=== PATIENT | female | born 1960 | race Caucasian/White ===

== ENCOUNTER → 2016-08-26 | Outpatient (CLI) | payer BC ==
[~2016-08-26] MED LIST: ADVIN25/60 INH; ALBU1AER9 INH; AMLH/550 PO; BECL0.072 INH; CHOL2000 PO; COEN10CA5 PO; CYAN1DRO PO; DICL1GEL12 TOP; FLUT0.15; GLUCTAB7 PO; LORA5TAB3 PO; MAGN500T4 PO; MELO15TA4 PO; METO25TA3 PO; MULTCAP7 PO; OMEG10007 PO; POTA20TA16 PO; POTATAB PO; SPIR25TA PO; VITA400C15 PO
--- NOTE | 2016-08-26 12:54 | DIAGNOSTIC IMAGING REPORT ---
LEFT KNEE 4 OR MORE CLINICAL HISTORY: LEFT KNEE PAIN pain COMPARISON: None. DISCUSSION: Minimal narrowing of the medial joint compartments of the right as well as left knees. Smile small reactive osteophytic changes throughout all major joint compartments. No significant joint effusion. No evidence for fracture or dislocation There is no evidence for soft tissue swelling. IMPRESSION: 1. Mild degenerative change primarily the medial joint compartments of both knees. 2. Mild reactive peripheral osteophytic changes throughout all major joint compartments of the knees bilaterally Electronically signed by: Ruben Foster M.D. 08/26/2016 12:52 PM Dictated Date/Time: 08/26/2016 12:51 PM
== END | disposition home or self-care (01) ==
LOC: C.RDSM 12:41
PROVIDERS: ATTEND Physical Medicine & Rehabilitation Sports Medicine
DX: M25.562 Pain in left knee (principal)

== ENCOUNTER → 2016-11-16 | Outpatient (CLI) | payer BC ==
[~2016-11-16] VITALS: Ht 162.6 cm; Wt 119.1 kg
[2016-11-16 15:58] VITALS: BP 129/85; PULSE 86; Ht 162.6 cm; Wt 119.1 kg
== END | disposition home or self-care (01) ==
LOC: C.NEUR 15:43
PROVIDERS: ATTEND Internal Medicine Pulmonary Disease
DX: G47.33 Obstructive sleep apnea (adult) (pediatric) (principal); E66.9 Obesity, unspecified; F51.12 Insufficient sleep syndrome; D75.1 Secondary polycythemia

== ENCOUNTER → 2016-12-08 | Outpatient (CLI) | payer BC ==
--- NOTE | 2016-12-09 05:44 | PAP/PSG TECHNICIAN REPORT ---
[facility] Jewelry Bearing Maker Polysomnogram Report Study name: None Report date: 12/09/2016 Study date: 12/08/2016 Referring Physician: DR. WILVER CARPIO Name: MERYL MARLOW Interpreting Physician: Hunter Holly M.D. Date of : 1960 Jewelry Bearing Maker: Misty Curz [facility]. Sex: Female Age: 56 Study Type: PSG PAP Weight: 257.28 lbs Height: 56 years, Height 5' 4" BMI: 44.16 Medications: ADVAIR 250-50-MCG/DOSE, ALDACTONE 25 MG, AMILORIDE-HYDROCHLOROTHIAZIDE 5-50 MG, VIT D 2000 UNIT, COQ10 10 MG, CYANOCOBALAMIN 6000 MCG, FLONASE, GLUCOSAMINE CHONDROITIN, KLOR-CON 20 MEQ, LORATADINE 10 MG, MAGNESIUM 500 MG, MELOXICAM 15 MG, METOPROLOL 25 MG, MULTI VIT, OMEGA 3 FATTY ACIDS 300 MG, FISH OIL, POTASSIUM CITRATE 5 MEQ, PROAIR HFA, QVAR 40 MCG, VIT E 400 UNIT, VOLTAREN 1% GEL Patient History 56 yr-old female here for a CPAP update study. She was found to be positive for MORRIS via a home sleep study. She has since then been set up with CPAP at home and is back to assess her pressure settings. Tonight, she is wearing a Mirage FX Soft edge nasal mask size small from [employer]. The test was started on room air and 4 CMH2O. ETCO2 testing was not utilized during this study. Room 3 Parameters Monitored NPSG: E1-M2, E2-M1, Fp1-M2, Fp2-M1, F3-M2, F4-M2, F4-M1, C3-M2, C4-M2, C4-M1, O1-M2, O2-M2, O2-M1, T3-M2, T4-M1, P3-M2, P4-M1, CHIN1, CHIN2, HR, EKG, Legs, PFLOW, SNOR, FLOW, CFLOW, Tidal Volume, THOR, ABDO, SpO2, PLTH, CPRESS, ETCO2 Wave, ETCO2, pH Sleep Architecture Sleep Stages Time at Lights Off 10:58:25 PM STAGES Time (min.) TST (%) Time at Lights On 5:01:25 AM Wake 117.0 -- Total Recording Time (TRT) 363.00 min. N1 21.5 9 Total Sleep Period (TSP) 312.0 min. N2 190.0 77 Total Sleep Time (TST) 246.0min. N3 0.0 0 Awake Time 117.0 min. REM 34.5 14 Wake after Sleep Onset 106.0 min. Sleep Efficiency (SE) 68 % Sleep Onset Latency (ARMEN) 11.0 min. Number of Stage 1 Shifts None Awakenings 16 Stage Changes 56 Number of REM periods 2 REM 34.5 14 REM Latency 102.5 min. NREM 211.5 86 Body Position Analysis Supine Right Left Side Prone Vertical Total Sleep Time (min.) 0.0 0.0 171.5 171.50 164.4 0.1 Total Sleep Time (%) 0% 0% 70% 70 30% N/A% Total Sleep Time REM (min.) 0.0 0.0 18.0 None 16.5 0.0 Total Sleep Time NREM (min.) 0.0 0.0 153.5 None 58.0 0.0 Intermittent Wake (min.) 0.0 0.0 26.9 None 89.9 0.1 Total Sleep Period (%) 0% None None None None None Arousals Myoclonus (PLM) * Events Count Index Events Count Index Spontaneous 21 5 Events Awake (PLMW) 126 64.6 Respiratory 1 0.2 Events Asleep w/ Arousal (PLMA) 9 2.2 PLM 9 2 Events Asleep w/o Arousal (PLMS) 38 9.3 Snoring 4 1 Total Asleep 47 11.5 Total 35 9 Total 173 29 Respiratory Analysis * CA OA MA CH H RERA Total Count 0 0 0 0 8 1 8 Index 0.0 0.0 0.0 0 2.0 0 2.2 Mean Duration 0.0 0.0 0.0 0.00 16.5 16.6 16.6 Longest Duration 0.0 0.0 0.0 0.00 0.0 16.6 20.8 Respiratory Event Summary Total Supine ~Supine Right Left Prone REM NREM Apneas Count 0 N/A 0 N/A 0 0 0 0 Index 0.0 N/A 0 N/A 0.0 0 0 0 Hypopneas (4% Desat) Count 8 N/A 8 N/A 8 0 5 3 Index 2.0 N/A 2 N/A 2.8 0.0 8.7 0.9 Apneas & All Hypopneas Count 8 N/A 8 N/A 8 0 5 3 Index 2.0 N/A 2 N/A 3 0 8.7 0.9 Respiratory Events (Balloon Design Printer+All Hyp+RERA) Count 8 N/A 9 N/A 9 0 5 3 Index 2.2 N/A 2 N/A 3.1 0.0 8.7 1.1 Respiratory Related Arousal Count 1 N/A 1 N/A 1 0 0 1 Index 0.2 N/A 0 N/A 0 0 0 0 Snoring Analysis Supine Right Left Prone REM NREM Total Snore duration 24.5 min Snores count N/A N/A 932 514 16 1,430 1,446 Snore mean duration 1.0 Sec Snores index N/A N/A 326 414 27.8 405.7 352.7 TST with snoring (%) 9.9% Desaturation Event Summary: Minimum %SpO2 Event Count Mean/Min/Max Duration(sec.) Desaturation Index % Time In Bed > 90 22 33.5 / 6.3 / 56.0 4.0 97.6 86 - 90 1 40.0 / 40.0 / 40.0 7.4 2.4 81 - 85 0 N/A 0.0 0.0 76 - 80 0 N/A 0.0 0.0 71 - 75 0 N/A 0.0 0.0 66 - 70 0 N/A 0.0 0.0 61 - 65 0 N/A 0.0 0.0 56 - 60 0 N/A 0.0 0.0 51 - 55 0 N/A 0.0 0.0 < 50 0 N/A 0.0 0.0 Total REM NREM Awake <50% 0.0 min. 0.0 min. 0.0 min. 0.0 min. 51 - 60% 0.0 min. 0.0 min. 0.0 min. 0.0 min. 61 - 70% 0.0 min. 0.0 min. 0.0 min. 0.0 min. 71 - 80% 0.0 min. 0.0 min. 0.0 min. 0.0 min. 81 - 90% 8.1 min. 5.3 min. 0.2 min. 2.6 min. 91 - 100% 332.6 min. 29.1 min. 211.3 min. 92.2 min. Average 93 92 93 93 Minimum SpO2 87 87 88 89 Desaturation Event Index 3.6 13.9 1.7 4.6 # Desat. Events below 89% 2 2 N/A N/A Time(%) with Saturation below 89% 0.2 0.2 0.0 0.0 Time(min.) with Saturation below 89% 0.7 0.7 0.1 0.0 Time (mins) REM (mins) NREM (mins) % of TST SpO2 Below 90% 6 6 NN/A 1.1 SpO2 Below 88% 1 0 0 0 Heart Rate Analysis Min (bpm) Max (bpm) Average (bpm) Awake 71 98 80 NREM 67 92 77 REM 73 127 81 Overall 67 127 77 Supplemental O2 Values Minimum O2 level: None Value Start Time End Time Jewelry Bearing Maker Comments Ms. Marlow slept in the left and prone positions. No cardiac arrhythmias or PLMs noted. No bruxism noted. CPAP was initiated at +4 CMH2O and up-titrated to a level of +6 CMH2O, Cflex 2 which nearly eliminated all respiratory events and snoring. A Mirage FX Soft edge nasal mask size small from [employer] was used during titration She did not wake up to use the restroom during the night. She woke up early and stated that she could no longer sleep and requested to end the study. Ms. Marlwo stated that she slept poorly. The final report will be interpreted and signed by a sleep physician. The completed physician report will then be placed in the patient medical record. Therapy Event: Therapy (cm H20) 4 5 6 Total Time at Pressure (min.) 104.4 41.7 216.9 TST at Pressure (min.) 89.9 40.7 115.4 # Periods 1 1 1 Sleep Onset (min.) 11.0 0.0 0.0 REM Onset (min.) N/A 9.1 92.9 Sleep Efficiency % 86 97 53 Wakefulness (%) 13.9 2.4 46.8 Wakefulness (min.) 14.5 1.0 101.5 NREM 1 (%) 11.5 4.8 3.5 NREM 1 (min.) 12.0 2.0 7.5 NREM 2 (%) 74.6 49.7 42.1 NREM 2 (min.) 77.9 20.7 91.4 NREM 3 (%) 0.0 0.0 0.0 NREM 3 (min.) 0.0 0.0 0.0 REM (%) 0.0 43.1 7.6 REM (min.) 0.0 18.0 16.5 # Arousals 15 6 14 Arousal Index 10.0 8.8 7.3 # Snore 780 44 622 Snore Index 520.6 64.8 323.5 AHI 2.0 7.4 0.0 AHI Supine N/A N/A N/A AHI Non-Supine 2.0 7.4 0.0 NREM AHI 2.0 0.0 0.0 REM AHI N/A 16.7 0.0 RDI 2.7 7.4 0.0 # Obstructive 0 0 0 # Central Ap 0 0 0 # Mixed 0 0 0 # Hypopneas 3 5 0 RERAS 1 0 0 Total Respiratory Events 4 5 0 Time Below SpO2 89.00% (min.) 0.0 0.6 0.2 Mean NREM SpO2 (%) 94 94 93 Mean REM SpO2 (%) N/A 92 92 Mean Sleep SpO2 (%) 94 93 93 Min NREM SpO2 (%) 92 93 88 Min REM SpO2 (%) N/A 87 88 Position Supine (min.) 0.0 0.0 0.0 Position Non-supine (min.) 89.9 40.7 115.4 LM Index Sleep 6.0 10.3 16.1 LM Index NREM 6.0 5.3 17.6 LM Index REM N/A 16.7 7.3 Mean Heart Rate (bpm) 77 79 77 Min Heart Rate (bpm) 67 71 68
--- NOTE | 2016-12-17 12:27 | Sleep Study ---
Sleep Study Report Date of Service: December 08, 2016 Sleep Study Report Clinical data: The patient is a 56-year-old female with a BMI of 44.[address] Silva for an evaluation for CPAP pressures. She does have polycythemia. She was found to have sleep apnea on a home sleep apnea test. She has been started on CPAP. She was sent to assess her pressure settings. Sleep architecture: Total sleep time was 246 minutes divided between 211.5 minutes and REM sleep at 34.5 minutes REM sleep. Sleep onset latency was 11 minutes. REM latency was 102.5 minutes for sleep efficiency was 68 percent. Wake after sleep onset was elevated at 106 minutes. Sleep consisted of stage N1 9 percent, N2 77 percent, and REM 14 percent. Arousal data: 35 arousals were recorded for an index of 9 per hour PLM data: 47 limb movements of sleep were noted for an index of 11.5 per hour with an arousal index of 2.2 per hour Respiratory data: The AHI was 2. There were 8 hypopneas episodes. The mean duration of hypopnea was 16.5 seconds. Oximetry data: No significant hypoxemia was seen. Oxygen cara was 87 percent during REM sleep. Mean saturation was 93 percent. Time below 88 percent was 1 minute. EKG: Heart rates ranged from 67 to 127 beats per minute. No arrhythmias were noted. Roller Repairer's comments and treatment summary: The patient slept in the left and prone positions. CPAP was started using a Mirage FX soft edge nasal mask size small from [employer] . The patient was titrated to 6 centimeters water pressure C flex 2. At this level, she slept for 115.4 minutes with an AHI of 0. She awoke early and stated she could no longer sleep and requested the study be ended. Impression: Obstructive sleep apnea corrected with CPAP 6 centimeters water C flex 2 with the above-noted interface. Recommendation: The patient's CPAP should be set at 6 centimeters water pressure C flex 2. She should be seen in follow-up within 90 days to document efficacy and compliance. Copies To 1: Melchor Frausto M.D.; Omar Silva D.O.
== END | disposition home or self-care (01) ==
LOC: C.NEUR 20:00
PROVIDERS: ATTEND Internal Medicine Hematology & Oncology
DX: D75.1 Secondary polycythemia (principal); D47.3 Essential (hemorrhagic) thrombocythemia

== ENCOUNTER → 2016-12-31 | Outpatient (CLI) | payer BC ==
--- NOTE | 2017-01-03 14:31 | MAMMOGRAPHY REPORT ---
BILATERAL DIGITAL SCREENING MAMMOGRAM TOMOSYNTHESIS WITH CAD: 12/31/2016 CLINICAL HISTORY: Routine screening. TECHNIQUE: Breast tomosynthesis in addition to standard 2D mammography was performed. Current study was also evaluated with a Computer Aided Detection (CAD) system. COMPARISON: Comparison is made to exams dated: 12/31/2015 mammogram, 12/24/2014 mammogram, 10/18/2013 ma mmogram, 08/16/2012 mammogram, 09/29/2011 mammogram, and 09/25/2010 mammogram - [facility]. BREAST COMPOSITION: There are scattered areas of fibroglandular density in both breasts. FINDINGS: No suspicious masses, calcifications, or areas of architectural distortion are noted in ei ther breast. There has been no significant interval change compared to prior exams. IMPRESSION: ACR BI-RADS CATEGORY 1: NEGATIVE There is no mammographic evidence of malignancy. A 1 year screening mammogram is recommended. The pa tient will receive written notification of the results. Approximately 10% of breast cancers are not detected with mammography. A negative mammographic report should not delay biopsy if a clinically suggestive mass is present. Caron Hernandez M.D. ah/:01/03/2017 07:54:49 Value Analysis Coordinator: Oneil PEREZ(Giovanni)(M), [facility] letter sent: Normal 1/2 BI-RADS Code: ACR BI-RADS Category 1: Negative
== END | disposition home or self-care (01) ==
LOC: C.MAMM 16:26
PROVIDERS: ATTEND Family Medicine
DX: Z12.31 Encounter for screening mammogram for malignant neoplasm of breast (principal)

== ENCOUNTER 2020-04-29 06:45 | Observation (INO) ==
--- NOTE | 2020-03-24 08:24 | PAT Medication Instructions ---
Medication Instructions Date of Service March 24, 2020 Home Medications albuterol sulfate 90 mcg/actuation aerosol inhaler 2 puffs INH Q4H PRN beclomethasone dipropionate 80 mcg/actuation HFA breath activated aerosol 1 puffs INH BID PRN cholecalciferol (vitamin D3) 50 mcg (2,000 unit) capsule 2,000 units PO QAM coenzyme Q10 10 mg capsule 10 mg PO QAM desonide 0.05 % topical ointment 1 applic TOP DAILY PRN diclofenac sodium 75 mg tablet,delayed release 75 mg PO BID doxycycline hyclate 50 mg capsule 50 mg PO QAM fluticasone propionate 50 mcg/actuation nasal spray,suspension 2 sprays INTNAS DAILY PRN glucosamine sulfate 2 tab PO QAM metoprolol tartrate 25 mg tablet 12.5 mg PO HS tab mometasone 50 mcg/actuation nasal spray 2 sprays INTNAS DAILY PRN omega-3 acid ethyl esters 1 gram capsule 1 cap PO QAM potassium chloride 20 mEq tablet,extended release 20 meq PO BID potassium citrate 5 mEq (540 mg) tablet,extended release 5 meq PO BID tab 05/08/19 [History Confirmed 03/24/20] spironolactone 25 mg tablet 25 mg PO BID vit A-vit C-vit S-ictp-qizhny 1 tab PO QAM vitamin E succinate 400 unit tablet 400 units PO QAM acetaminophen 650 mg tablet,extended release 1,300 mg PO BID fluticasone propionate 230 mcg-salmeterol 21 mcg/actuation HFA inhaler 2 puffs INH BID PRN loratadine 5 mg-pseudoephedrine ER 120 mg tablet,extended release,12hr 1 tab PO DAILY PRN magnesium 400 ea PO QAM metaxalone 800 mg tablet 800 mg PO TID PRN amiloride 2.5 mg PO HS aspirin 81 mg PO QAM diclofenac sodium 4 gm TOP TID hydrochlorothiazide 25 mg PO HS Continue as directed doxycycline hyclate 50 mg capsule 50 mg PO QAM ASK your surgeon for instructions diclofenac sodium 75 mg tablet,delayed release 75 mg PO BID STOP taking 2 weeks before surgery coenzyme Q10 10 mg capsule 10 mg PO QAM glucosamine sulfate 2 tab PO QAM omega-3 acid ethyl esters 1 gram capsule 1 cap PO QAM vit A-vit C-vit M-sweq-nwdjmd 1 tab PO QAM vitamin E succinate 400 unit tablet 400 units PO QAM STOP taking 24 hours before surgery desonide 0.05 % topical ointment 1 applic TOP DAILY PRN diclofenac sodium 4 gm TOP TID DO NOT take the morning of surgery cholecalciferol (vitamin D3) 50 mcg (2,000 unit) capsule 2,000 units PO QAM potassium chloride 20 mEq tablet,extended release 20 meq PO BID potassium citrate 5 mEq (540 mg) tablet,extended release 5 meq PO BID spironolactone 25 mg tablet 25 mg PO BID loratadine 5 mg-pseudoephedrine ER 120 mg tablet,extended release,12hr 1 tab PO DAILY PRN magnesium 400 ea PO QAM metaxalone 800 mg tablet 800 mg PO TID PRN Take morning of surgery With a small sip of water, OTHERWISE NOTHING TO EAT OR DRINK AFTER MIDNIGHT: albuterol sulfate 90 mcg/actuation aerosol inhaler 2 puffs INH Q4H PRN (use if needed; please bring with you to hospital day of surgery if possible) beclomethasone dipropionate 80 mcg/actuation HFA breath activated aerosol 1 puffs INH BID PRN (if needed) fluticasone propionate 50 mcg/actuation nasal spray,suspension 2 sprays INTNAS DAILY PRN (if needed) mometasone 50 mcg/actuation nasal spray 2 sprays INTNAS DAILY PRN (if needed) acetaminophen 650 mg tablet,extended release 1,300 mg PO BID (okay to take up to 4 hours prior to surgery if needed) fluticasone propionate 230 mcg-salmeterol 21 mcg/actuation HFA inhaler 2 puffs INH BID PRN (if needed) aspirin 81 mg PO QAM Take evening before surgery albuterol sulfate 90 mcg/actuation aerosol inhaler 2 puffs INH Q4H PRN (if needed) beclomethasone dipropionate 80 mcg/actuation HFA breath activated aerosol 1 puffs INH BID PRN (if needed) metoprolol tartrate 25 mg tablet 12.5 mg PO HS potassium chloride 20 mEq tablet,extended release 20 meq PO BID potassium citrate 5 mEq (540 mg) tablet,extended release 5 meq PO BID spironolactone 25 mg tablet 25 mg PO BID acetaminophen 650 mg tablet,extended release 1,300 mg PO BID fluticasone propionate 230 mcg-salmeterol 21 mcg/actuation HFA inhaler 2 puffs INH BID PRN (if needed) metaxalone 800 mg tablet 800 mg PO TID PRN (if needed) amiloride 2.5 mg PO HS hydrochlorothiazide 25 mg PO HS Other Notes If you have any questions please call us at [phone] or [phone] or [phone] or [phone]
--- NOTE | 2020-03-24 08:32 | Anesthesiology Consultation ---
Date of Service March 24, 2020 Assessment & Plan (1) Encounter for pre-operative examination: Chart Review Chart Review: Pending: Refer to Additional Notes / Consult section (pending PCP respones re: ECHO and preop Covid testing ) and Patient NOT seen in Pre Admission Testing Did write note to PCP regarding 2014 ECHO and near cavity obliteration- mid cavitary gradient could not be completely ruled out. Did inquire with PCP if repeat ECHO or cardio clearance needed prior to procedure. Did recommend patient bring CPAP to hospital during admission but patient refuses. Per PAT appt on 03/24/20, pt resides in [facility]. Denies any recent travel. Works at [employer]- decreased social contacts. Uses PPE. No known Covid positive contacts or Covid related symptoms. Per patient- getting preop Covid test done via surgeon office 04/24/20. Educated on importance of self quarantining, social distancing and wearing mask in public both for the patient and household contacts. Teaching & Discussion Pre-Anesthesia Teaching/Discussion Notes: Instructed NPO after midnight before surgery,except medications with 15 cc of water. Medication instructions provi ded according to the PAT guidelines. History Surgery Operation Date: 04/29/20 11:10 Proposed Procedures p Left Total Knee Arthroplasty - Omar Saavedra MD Height/Weight Height: 5 ft 4 in Weight: 115.8 kg Allergies Allergy/AdvReac Type Severity Reaction Status Date / Time adhesive Allergy Mild ADHESIVES Verified 03/24/20 07:37 ON BANDAIDS MAKES SKIN SORE Medications Home Medications Medication Instructions Recorded Confirmed Last Taken albuterol sulfate 90 mcg/actuation 2 puffs INH Q4H PRN gm 05/08/19 03/24/20 Unknown aerosol inhaler beclomethasone dipropionate 80 1 puffs INH BID PRN 05/08/19 03/24/20 Unknown mcg/actuation HFA breath activated aerosol cholecalciferol (vitamin D3) 50 2,000 units PO QAM cap 05/08/19 03/24/20 Unknown mcg (2,000 unit) capsule coenzyme Q10 10 mg capsule 10 mg PO QAM cap 05/08/19 03/24/20 Unknown desonide 0.05 % topical ointment 1 applic TOP DAILY PRN gm 05/08/19 03/24/20 Unknown diclofenac sodium 75 mg 75 mg PO BID tab 05/08/19 03/24/20 Unknown tablet,delayed release doxycycline hyclate 50 mg capsule 50 mg PO QAM cap 05/08/19 03/24/20 Unknown fluticasone propionate 50 2 sprays INTNAS DAILY PRN ml 05/08/19 03/24/20 Unknown mcg/actuation nasal spray,suspension glucosamine sulfate 2 tab PO QAM 05/08/19 03/24/20 Unknown metoprolol tartrate 25 mg tablet 12.5 mg PO HS tab 05/08/19 03/24/20 Unknown mometasone 50 mcg/actuation nasal 2 sprays INTNAS DAILY PRN gm 05/08/19 03/24/20 Unknown spray omega-3 acid ethyl esters 1 gram 1 cap PO QAM cap 05/08/19 03/24/20 Unknown capsule potassium chloride 20 mEq 20 meq PO BID tab 05/08/19 03/24/20 Unknown tablet,extended release potassium citrate 5 mEq (540 mg) 5 meq PO BID tab 05/08/19 03/24/20 Unknown tablet,extended release spironolactone 25 mg tablet 25 mg PO BID tab 05/08/19 03/24/20 Unknown vit A-vit C-vit [id number]-pdysjc 1 tab PO QAM 05/08/19 03/24/20 Unknown vitamin E succinate 400 unit tablet 400 units PO QAM tab 05/08/19 03/24/20 Unknown acetaminophen 650 mg 1,300 mg PO BID tab 01/01/20 03/24/20 Unknown tablet,extended release fluticasone propionate 230 2 puffs INH BID PRN gm 01/01/20 03/24/20 Unknown mcg-salmeterol 21 mcg/actuation HFA inhaler loratadine 5 mg-pseudoephedrine ER 1 tab PO DAILY PRN tab 01/01/20 03/24/20 Unknown 120 mg tablet,extended release,12hr magnesium 400 ea PO QAM 01/01/20 03/24/20 Unknown metaxalone 800 mg tablet 800 mg PO TID PRN 01/01/20 03/24/20 Unknown amiloride 2.5 mg PO HS 03/24/20 03/24/20 Unknown aspirin 81 mg PO QAM 03/24/20 03/24/20 Unknown diclofenac sodium 4 gm TOP TID 03/24/20 03/24/20 Unknown hydrochlorothiazide 25 mg PO HS 03/24/20 03/24/20 Unknown Past Medical History Medical History Asthma Stable and controlled - aggrevated more by smoke Ganglion, finger joint of right hand drained the right hand and left hand monitoring= no signs of infection Hx of renal calculi Hypertension Rheumatoid arthritis newly dx and has not seen dr caicedo yet Sleep apnea cpap Exercise / Class Metabolic Activity III < 4 Walking/Shop/Light housework (one flight of stairs - mild SOB/no chest pain ) Past Family History Family History Father Lung cancer Mother Hypertension Past Surgical History Surgical History History of cholecystectomy History of colonoscopy History of dilatation and curettage History of hysteroscopy History of lithotripsy Past Anesthesia History No Hx of Anesthesia Complications and No Family Hx of Anesthesia Complications History of PONV No Hx of PONV and No Hx of Motion Sickness Social History Smoking Status: Never smoker Do You Dip or Chew Tobacco: No Hx Alcohol Use: Yes alcohol intake frequency: holidays/special occasions only Hx Substance Use: No substance use type: does not use Review of Systems Patient denies chest pain, shortness of breath, dyspnea on exertion, reflux, cough, wheezing, palpitations. No hx of seizures, stroke, [place]. No hx of blood clots or blood transfusions Physical Exam Vital Signs VITALS BP 132/84 P 65 TEMP 98.5 SP02 97% RESP 16 Constitutional + morbidly obese; no acute distress ENMT Mouth: no TMJ clicking Thyromental Distance: > or= 3.5 Finger Breadths (4.0 (difficult to palpate)) Mallampati Class: II Missing upper right molar Neck + short neck, + thick neck and + limited neck extension (significant ) Respiratory normal respiratory effort; no respiratory distress Auscultation: lungs clear to auscultation bilaterally; no wheezes Cardiovascular Rate/Rhythm: regular rate and regular rhythm Heart Sounds: no murmur Vessels: no carotid bruit Musculoskeletal Spine: no pain with cervical ROM Neurologic moves all extremities Psychiatric Orientation: alert Testing Laboratory Results 03/24/20 08:53 03/24/20 08:53 PT 11.2 Seconds (9.0-12.0) 03/24/20 08:53 INR 1.1 (0.9-1.1) 03/24/20 08:53 APTT 27.1 Seconds (21.0-31.0) 03/24/20 08:53 Blood Type A Positive 03/24/20 08:53 Antibody Screen NEGATIVE 03/24/20 08:53 Electrocardiogram Date: 03/24/20 Findings: + NSR @ (67) Normal EKG Chest X-Ray Date: 03/24/20 Findings: + NAD Echocardiogram Date: 07/02/14 EF: >70% RWMA: + none Other Findings: + LVH (mild/concentric ) LV is small for BSA. Hyperdynamic LV systolic function with near cavity obliteration. Grade I diastolic dysfunction. Can not completely rule out a mid cavitary gradient. No evidence of ANIA.
--- NOTE | 2020-03-24 09:25 | XRay Report ---
XR chest Pre-admission PA/Lat HISTORY: Preop. COMPARISON: None. FINDINGS: The lungs are clear. Cardiac silhouette is normal in size. No pleural effusions. No pneumot horax. Prior cholecystectomy. IMPRESSION: No acute process. ACT 112: Negative or not required by law. Electronically signed by: Heber Looney M.D. 03/24/2020 9:23 AM
[2020-03-24 11:17] LABS: Basophils # (auto) 0.03 K/uL (0-0.2); Basophils % (auto) 0.7 %; Eosinophils # (auto) 0.17 K/uL (0-0.5); Eosinophils % (auto) 3.8 %; Hematocrit (blood only) 45.3 % (37-47); Hemoglobin 15.3 g/dL (12.0-16.0); Immature Granulocytes # (auto) 0.01 K/uL (0.00-0.02); Immature Granulocytes % (auto) 0.2 %; Lymphocytes % (auto) 33.2 %; Mean Corpuscular Hemoglobin 31.6 pg (25-34); Mean Corpuscular Hgb Conc 33.8 g/dL (32-36); Mean Corpuscular Volume 93.6 fL (80-100); Mean Platelet Volume 10.2 fL (7.4-10.4); Monocytes # (auto) 0.47 K/uL (0.11-0.59); Monocytes % (auto) 10.4 %; Neutrophils # (auto) 2.34 K/uL (1.4-6.5); Neutrophils % (auto) 51.7 %; Platelet Count 228 K/uL (130-400); RDW Coefficient of Variation 13.3 % (11.5-14.5); Red Blood Count 4.84 M/uL (4.2-5.4); White Blood Count 4.52 K/uL (4.8-10.8)
[2020-03-24 11:28] LABS: BUN Creatinine Ratio 28.2 (10-20); Calcium 9.8 mg/dl (8.5-10.1); Creatinine Clr Calc Pharmacy 98.3 ml/min; Est GFR (African American) 98.8; Est GFR (Non-African American) 85.3; Potassium 3.7 mmol/L (3.5-5.1)
[2020-03-24 11:31] LABS: INR 1.1 (0.9-1.1); Partial Thromboplastin Time 27.1 Seconds (21.0-31.0); Prothrombin Time 11.2 Seconds (9.0-12.0)
--- NOTE | 2020-03-24 16:08 | Electrocardiogram Report ---
Test Reason : Blood Pressure : / mmHG Vent. Rate : 067 BPM Atrial Rate : 067 BPM P-R Int : 156 ms QRS Dur : 082 ms QT Int : 400 ms P-R-T Axes : 024 061 027 degrees QTc Int : 422 ms Normal sinus rhythm Normal ECG When compared with ECG of 28-JUL-2015 10:39, No significant change was found Confirmed by Golden Solis ([id number]) on 03/24/2020 4:08:14 PM Referred By: Omar Saavedra Confirmed By:Golden Solis
--- NOTE | 2020-04-25 18:39 | History and Physical Report ---
DATE OF ADMISSION: 04/29/2020 CHIEF COMPLAINT: Left knee pain. HISTORY OF PRESENT ILLNESS: The patient is a 59-year-old female who presents now for surgical treatment of her left knee. She has had a fairly long history of left knee pain and discomfort, which has gradually gotten worse over time. She has been through extensive conservative treatment including various medicines as well as injections, which have become less successful over time. She has been managed by Dr. Hatfield, hob grinder for arthritis. It is affecting her quality of life. She would like to have her knee fixed. She has pain going up and down steps. She has nighttime pain. PAST MEDICAL HISTORY: Significant for, 1. Rheumatoid arthritis, followed by Dr. Hatfield. 2. Hypertension. 3. Sleep apnea with CPAP machine. 4. Obesity with BMI of 44. 5. Kidney stones. PAST SURGICAL HISTORY: Includes, 1. . 2. Cholecystectomy. 3. Lithotripsy. 4. D and C. ALLERGIES: None. CURRENT MEDICINES: Include, 1. Klor-Con. 2. Amiloride. 3. Hydrochlorothiazide. 4. Potassium citrate. 5. Spironolactone. 6. Metoprolol. 7. Baby aspirin. 8. Vitamins. 9. Magnesium. 10. Glucosamine. 11. Unspecified eye vitamin. SOCIAL HISTORY: Significant for a 59-year-old female. She works as a bsw. Does not smoke or drink. FAMILY HISTORY: Noncontributory. REVIEW OF SYSTEMS: Negative for diabetes, neurologic problem, vascular problem, or bleeding disorders. No chest pain or shortness of breath. She does have this new diagnosis of rheumatoid disease. No history of DVT or PE. PHYSICAL EXAMINATION: GENERAL: Shows a pleasant, middle-aged female. She looks to be in reasonably good health. HEENT: Benign. NECK: Supple, no lymphadenopathy. LUNGS: Clear to auscultation. HEART: Has a regular rate and rhythm. ABDOMEN: Soft, nontender, nondistended. EXTREMITIES: Grossly neurovascularly intact except as follows: Examination of the left knee reveals the patient ambulates independently. She does limp on this left side. She has got moderate soft tissue envelope. Small knee effusion. Range of motion is 5-120. No instability. No pain with hip motion. X-RAYS: X-rays of the left knee are reviewed. It shows advanced left knee DJD. She has complete loss of her medial joint space. She has got osteophytes in all 3 compartments. ASSESSMENT: A 59-year-old female with a history of underlying hypertension, rheumatoid arthritis, obesity, sleep apnea, with advanced left knee degenerative joint disease. She has failed conservative treatment and would like to have her left knee replaced. PLAN: We will take her to the operating room and do a left total knee replacement. The risks and benefits of this procedure were explained to the patient and include but not limited to DVT, PE, , infection, neurological injury, vascular injury, bleeding problem, pain, limited range of motion, stiffness, failure to relieve her symptoms, incomplete relief of symptoms, need for further surgery in the future, fracture, leg length inequality, nerve palsy, etc. The patient understands and desires to proceed. Informed consent was obtained. We did talk to her about taking her metoprolol the morning of surgery. She will bring her CPAP machine with her. She is planning to be discharged home using [facility] home health program.
[~2020-04-29 06:45] MED LIST changes: +ACETAMINOPHEN 500 MG TAB PO SCH; -ADVIN25/60 INH; -ALBU1AER9 INH; -AMLH/550 PO; -BECL0.072 INH; +BUPIVACAINE 0.25% 30 ML VIAL ONE; +BUPIVACAINE 0.5 % 5 MG/1 ML PF 10ML VIAL ONE; +BUPIVACAINE LIPOSOME/PF 266 MG, BUPIVACAINE/EPINEPHRINE 50 ML, SODIUM CHLORIDE 0.9% 30 ... INFIL SCH; -CHOL2000 PO; -COEN10CA5 PO; -CYAN1DRO PO; +DEXAMETHASONE SOD INJ 4 MG/ML VIAL ONE; -DICL1GEL12 TOP; +EPINEPHrine INJ 1 MG/ML AMP ONE; +FAMOTIDINE 20 MG TAB PO SCH; -FLUT0.15; +GABAPENTIN 600 MG DOSE PO SCH; -GLUCTAB7 PO; -LORA5TAB3 PO; +LR 500ML BOLUS, THEN 15ML/HR IV SCH; +LR 60ML/HR IV SCH; -MAGN500T4 PO; -MELO15TA4 PO; -METO25TA3 PO; +METOCLOPRAMIDE HCL 10 MG TABLET PO SCH; -MULTCAP7 PO; -OMEG10007 PO; -POTA20TA16 PO; -POTATAB PO; -SPIR25TA PO; +TRANEXAMIC ACID 1,000 MG **IV Intra-op IV SCH; -VITA400C15 PO; +ceFAZolin 2000MG 2,000 MG/15 ML SYR IV SCH
--- NOTE | 2020-04-29 06:50 | History & Physical Bridge Note ---
Date of Service April 29, 2020 History & Physical Bridge Note I have examined the patient, reviewed the History & Physical and in the interval since the performance of the History & Physical I have noted the following changes of clinical significance: no changes noted
[2020-04-29] MEDS ORDERED: LIDOCAINE HCL 2% 2 ML VIAL/AMP(20MG/ML) INFIL ONE (07:28)
[2020-04-29] MEDS ORDERED: GLYCOPYRROLATE 0.2 MG/ML VIAL ONE (07:28)
[2020-04-29] MEDS ORDERED: PROPOFOL IV EMULSION 10 MG/ML 20 ML VIAL IV ONE (07:28)
[2020-04-29] MEDS ORDERED: KETAMINE 50 MG/5 ML SYRINGE ONE (07:28)
[2020-04-29] MEDS ORDERED: DEXAMETHASONE SOD INJ 4 MG/ML VIAL ONE (07:28)
[2020-04-29] MEDS ORDERED: MIDAZOLAM HCL 1 MG/ML 2ML VIAL ONE (07:28)
[2020-04-29] MEDS ORDERED: ONDANSETRON INJ 2 MG/ML 2 ML VIAL ONE (07:28)
[2020-04-29] MEDS ORDERED: LABETALOL HCL IV 5 MG/ML 20ML IV ONE (07:53)
[2020-04-29] MEDS ORDERED: SODIUM CHLORIDE 0.9% PF 50 ML VIAL ONE (09:22)
[2020-04-29] MEDS ORDERED: BACITRACIN INJ 50,000 UNIT VIAL ONE (09:23)
[2020-04-29] MEDS ORDERED: BUPIVACAINE LIPOSOME 1.3% 266 MG/20 ML VIAL ONE (09:23)
[2020-04-29] MEDS ORDERED: EPINEPHrine INJ 1 MG/ML AMP ONE (09:23)
[2020-04-29] MEDS ORDERED: BUPIVACAINE 0.25% 30 ML VIAL ONE (09:23)
[2020-04-29] MEDS ORDERED: ATROPINE SULFATE 0.1 MG/ML 10ML SYR IV PRN (09:28)
[2020-04-29] MEDS ORDERED: fentaNYL citrate 100 MCG/2 ML VIAL IV PRN (09:28)
[2020-04-29] MEDS ORDERED: ONDANSETRON INJ 2 MG/ML 2 ML VIAL IV PRN ×2 (09:28→12:18)
[2020-04-29] MEDS ORDERED: ePHEDrine sulfate 50 MG/ML AMP IV PRN (09:28)
--- NOTE | 2020-04-29 11:22 | Post Operative Brief Note ---
PG Immediate Post Op with CF Date of Surgery April 29, 2020 Pre & Post Diagnosis Operation Date: 04/29/20 08:50 Pre-Op Diagnosis: Left Knee Advanced Degenerative Joint Disease Post-Op Diagnosis: Left Knee Advanced Degenerative Joint Disease I identified the patient and participated in the time-out.: Yes Procedure Operation Date: 04/29/20 08:50 Actual Procedures p Left Total Knee Arthroplasty(Left) - Omar Saavedra MD Surgeon Omar Saavedra MD Microfiche Duplicator RENAE Edwards Estimated Blood Loss 50 Findings Consistent with Post-Op Diagnosis Fluids 1500 cc Specimens Specimen Description: A. Left Knee Bone and Tissue Drains Morocho Catheter Anesthesia Type Spinal MAC Complications none Disposition Accompanied Patient To Recovery: No Disposition: Recovery Room
--- NOTE | 2020-04-29 11:35 | Operative Report ---
Post Operative Report Pre & Post Diagnosis Operation Date: 04/29/20 08:50 Pre-Op Diagnosis: Left Knee Advanced Degenerative Joint Disease Post-Op Diagnosis: Left Knee Advanced Degenerative Joint Disease I identified the patient and participated in the time-out.: Yes Procedure Operation Date: 04/29/20 08:50 Actual Procedures p Left Total Knee Arthroplasty(Left) - Omar Saavedra MD Surgeon Omar Saavedra MD Traffic Engineering Director RENAE Edwards Estimated Blood Loss 50 Findings Consistent with Post-Op Diagnosis Operative findings revealed advanced left knee DJD. She had grade 4 qoha-cu-klah disease the medial compartment and more spotty grade 4 changes the patellofemoral compartment. The lateral compartment was fairly well spared. She had a varus deformity to her knee with a moderate sized knee joint effusion. Fluids 1500 cc. Specimens Left knee sent for pathology. Drains None. Anesthesia Type Spinal MAC Complications none Disposition Accompanied Patient To Recovery: No Disposition: Recovery Room Indications Patient is a 59-year-old female is had a several year history of increasing bilateral knee pain discomfort left side a bit worse than the right. She been through extensive conservative treatment past which became less successful. She was limited by her knee pain. She elected proceed with total knee arthroplasty. Description of Procedure Operative implants consist of: 1. Biomet size 65 left posterior stabilized femoral component. 2. Biomet size 71 tibial tray. 3. Biomet size 10 mm posterior stabilized polyethylene insert. 4. 31 x 8 all polypatella. The patient was taken to the operating identified and placed on the operating table supine position protectors were properly padded. IV antibiotics tried by anesthesia team. A spinal anesthetic had been implemented holding area. Morocho catheter was placed in sterile fashion. A left thigh turn was then placed in the left lower extremity was then prepped and draped in usual sterile fashion. The left leg was elevated exsanguinated with use of an Esmarch and turns placed at 3 mmHg. An anterior approach left knee was then performed to longitudinal incision centered over the patella. Sharp dissection was carried out through subcutaneous tissues down the level of the extensor mechanism. A medial parapatellar arthrotomy incision was made. Some subperiosteal dissection was carried out medially. The fat pad was resected from each patella tendon. The lateral patellofemoral ligament was released and the patella was subluxated laterally. The knee was flexed. The osteophytes were taken off distal femur. The ACL and PCL were then released from distal femur the tibia subluxated anteriorly. External tibial alignment jig was then placed in the interface the tibia and adjusted 14 mm medially. Proximal tibial cut was made to move out a millimeter bone from most efficient aspect medial tibial plateau. Some osteophytes were taken off medial and posterior medially. The tibia was then sized to a size 71. Attention drawn the femur. The distal femur was then with a sharp drop with intramedullary canal was suction. A right 5 degree valgus cutting guide was placed. This femoral cutting block was pinned in place and the distal femoral cut was made to take an additional 3 mm of bone off distal femur. The femur was then sized to a size 65. We downsized this almost an entire size due to the narrow medial and lateral dimensions of the femur. The AP cutting block was pinned parallel to the epicondylar axis which was 5 degrees of external rotation. The anterior cut, anterior chamfer, posterior cut, posterior chamfer cuts were made. Box cutting guide was placed in a just slight lateral box cut was made. The knee was flexed. The remnants of the medial lateral menisci were excised. The osteophytes were taken off the posterior aspect the femur. A trial femoral component was placed. The tibial tray was pinned in maximum external rotation and the drill and stem punch were used to create defect in proximal tip for the tibial tray. The knee was then trialed and 10 mm insert fit most appropriately. Attention drawn the patella. The patella was cleaned of all soft tissues. Patella thickness measured 20 mm in thickness was cut down to 13. Was sized to a size 31 patella. The lug holes were drilled for the 31 patella. The lateral osteophyte was removed. Patella button was placed. Knee was taken through range of motion patella tracked nicely with no thumbs test. Attention drawn to place the permanent components. All trial components were removed. A bone plug was placed in the distal femur limit blood loss. A double batch Palacos G cement was mixed. A Biomet Vanguard size 65 left posterior stabilized femoral component, size 71 tibial tray, a 10 mm posterior stabilized polyethylene insert, 31 x 8 all polypatella then cemented in place. The knee was brought out into full extension until cement hardened. Final cement check was then performed. The pericapsular tissues were injected with total 100 cc of combination of 20 cc of Exparel, 30 cc normal saline, 50 cc of quarter percent Marcaine with epinephrine. Patient did receive 1 g tranexamic acid but the tourniquet was then let down for final turn time 55 minutes. Hemostasis assured use electrocautery. The wounds once again irrigated. The extensor mechanism closed with combination 1 PDS suture and #1 Vicryl suture in a [id number] fashion. Extensor mechanism checked found to be intact with subcutaneous tissue then closed with 2 Dexon suture in a buried interrupted fashion skin was closed skin maximino. Leg was then cleaned dried a sterile dressing both Xeroform, 4 x 4's, sterile cast padding, Mario bandage were applied. Patient then transferred to the recovery room in stable condition. Patient tolerated the procedure well and there were no complications. Cale Edwards, my physician criminal legal assistant, was present for the entire procedure. His assistance was essential and required for appropriate patient positioning, prepping and draping, surgical exposure, performing the technical details of the operation, placement the implants, closure of the wound, and placement of the sterile bandage. I attest to the content of the Intraoperative Record and any orders documented therein. Any exceptions are noted below.
--- NOTE | 2020-04-29 11:50 | XRay Report ---
LEFT KNEE 2 VIEWS History: Left total knee arthroplasty. Degenerative arthritis. Postop. FINDINGS: The patient is status post a left total knee arthroplasty. The hardware is intact. No fract ure or dislocation. Skin maximino are in place. IMPRESSION: Left total knee arthroplasty. No evidence for hardware complication. ACT 112: Negative or not required by law. Electronically signed by: Heber Looney M.D. 04/29/2020 11:49 AM
[2020-04-29] MEDS ORDERED: NALOXONE HCL 0.4 MG/1 ML VIAL/CARP IV PRN (12:18)
[2020-04-29] MEDS ORDERED: bisacodyL 10 MG SUPP PR PRN (12:18)
[2020-04-29] MEDS ORDERED: FLUTICASONE PROPIONATE NA SPR 16 GM BTL NAE PRN (12:18)
[2020-04-29] MEDS ORDERED: HYDROmorphone INJ 0.5 MG/0.5 ML SYR IV PRN (12:18)
[2020-04-29] MEDS ORDERED: METOCLOPRAMIDE HCL INJ 5 MG/ML 2 ML VIAL IV PRN (12:18)
[2020-04-29] MEDS ORDERED: MAGNESIUM HYDROXIDE SUSP 30 ML UDC PO PRN (12:18)
[2020-04-29] MEDS ORDERED: ALBUTEROL HFA 8 GM INHALER INH PRN (12:18)
[2020-04-29] MEDS ORDERED: diphenhydrAMINE Capsule 25 MG CAP PO PRN (12:18)
[2020-04-29] MEDS ORDERED: PNEUMOCOCCAL ADMINISTRATION CHARGE ONE (12:24)
[2020-04-29] MEDS ORDERED: FLUTICASONE FUROATE 100MCG 14 PUFFS/INHALER INH PRN (12:27)
[2020-04-29] MEDS: SODIUM CHLORIDE 0.9% 1000ML 1,000 ML IV SCH ×2 (12:32→22:02)
[2020-04-29] MEDS ORDERED: DESONIDE CR 15 GM TUBE EXT PRN (12:50)
[2020-04-29] MEDS ORDERED: FLUTICASONE/VILANTEROL 200/25MCG 14 PUFFS/INHALER INH PRN (12:52)
[2020-04-29] MEDS ORDERED: LORATADINE/PSEUDOEPHEDRINE 1 TABCR PO PRN (12:53)
[2020-04-29] MEDS ORDERED: FLUTICASONE PROPIONATE NA SPR 16 GM BTL PRN (13:02)
--- NOTE | 2020-04-29 13:07 | Anesthesiology Progress Note ---
Date of Service April 29, 2020 Anesthesia Post Procedure Vital Signs Vital Signs: Temp Pulse Pulse Resp BP BP Pulse Ox 04/29/20 12:40 36.8 C 84 16 101/64 95 04/29/20 12:10 36.5 C 89 14 111/71 93 04/29/20 11:55 36.6 C 81 14 111/59 L 96 04/29/20 11:45 83 15 113/65 98 04/29/20 11:35 83 14 112/66 96 04/29/20 11:29 37.0 C 95 H 20 101/58 L 93 04/29/20 07:10 37.1 C 74 18 136/65 96 Pain Intensity Generalized: Pain Intensity: 1 Transfer of Care Handoff Completed per policy Notes Mental Status: alert / awake / arousable Patient Amnestic to Procedure: Yes Nausea / Vomiting: adequately controlled Pain: adequately controlled Airway Patency, RR, SpO2: stable & adequate BP & HR: stable & adequate Hydration State: stable & adequate Neuraxial Anesthesia: was administered and sensory block is resolving Anesthetic Complications: no major complications apparent
[2020-04-29] MEDS: ACETAMINOPHEN 500 MG TAB PO SCH ×2 (14:00→22:02)
[2020-04-29] MEDS: KETOROLAC 30 MG/ML VIAL IV SCH ×2 (14:00→17:31)
[2020-04-29] MEDS: Scopolamine CHECK PATCH PLACEMENT SCH (15:45)
[2020-04-29] MEDS: FERROUS GLUCONATE 324 MG TAB PO SCH (15:46)
[2020-04-29] MEDS: ASCORBIC ACID 500 MG TAB PO SCH (15:47)
[2020-04-29] MEDS: SPIRONOLACTONE 25 MG TAB PO SCH (15:47)
[2020-04-29] MEDS ORDERED: PNEUMOCOCCAL POLYSACCHARIDES 25 MCG/0.5 ML VIAL/SYR IM ONE (16:00)
[2020-04-29] MEDS ORDERED: TRANEXAMIC ACID / 0.7% NACL 1,000 MG/100 ML BAG IV SCH (17:26)
[2020-04-29] MEDS: ceFAZolin 2000MG 2,000 MG/15 ML SYR IV SCH (17:32)
[2020-04-29] MEDS: ASPIRIN 81 MG ECTAB PO SCH (19:51)
[2020-04-29] MEDS: aMILoride HCL 5 MG TAB PO SCH (19:52)
[2020-04-29] MEDS: POTASSIUM CHLORIDE CRTAB 20 MEQ TABCR PO SCH (19:53)
[2020-04-29] MEDS: hydroCHLOROthiazide 25 MG TAB PO SCH (19:53)
[2020-04-29] MEDS: DOCUSATE SODIUM 100 MG CAP PO SCH (19:53)
[2020-04-29] MEDS: SENNA 8.6 MG TAB PO SCH (19:54)
[2020-04-29] MEDS: METOPROLOL TARTRATE 25 MG TAB PO SCH (19:54)
[2020-04-29] MEDS: TAPENTADOL HCL ER 50 MG TABCR PO SCH (20:13)
[2020-04-29] MEDS ORDERED: POTASSIUM CITRATE PO SCH (21:00)
[2020-04-30] MEDS: KETOROLAC 30 MG/ML VIAL IV SCH ×4 (00:55→20:01)
[2020-04-30] MEDS: Scopolamine CHECK PATCH PLACEMENT SCH ×3 (00:56→16:01)
[2020-04-30] MEDS: ceFAZolin 2000MG 2,000 MG/15 ML SYR IV SCH (01:00)
[2020-04-30] MEDS: ACETAMINOPHEN 500 MG TAB PO SCH ×3 (05:41→20:01)
[2020-04-30] MEDS: oxyCODONE HCL IR 5 MG TAB (IMMEDIATE RELEASE) PO PRN (06:11)
[2020-04-30 06:54] LABS: Hematocrit (blood only) 38.8 % (37-47); Hemoglobin 12.9 g/dL (12.0-16.0); Mean Corpuscular Hemoglobin 31.1 pg (25-34); Mean Corpuscular Hgb Conc 33.2 g/dL (32-36); Mean Corpuscular Volume 93.5 fL (80-100); Mean Platelet Volume 10.1 fL (7.4-10.4); Platelet Count 202 K/uL (130-400); RDW Coefficient of Variation 13.1 % (11.5-14.5); RDW Standard Deviation 44.8 fL (36.4-46.3); Red Blood Count 4.15 M/uL (4.2-5.4); White Blood Count 12.21 K/uL (4.8-10.8)
[2020-04-30 07:10] LABS: BUN Creatinine Ratio 19.4 (10-20); Calcium 8.6 mg/dl (8.5-10.1); Creatinine Clr Calc Pharmacy 92.1 ml/min; Est GFR (African American) 91.5; Est GFR (Non-African American) 78.9; Potassium 3.6 mmol/L (3.5-5.1)
[2020-04-30] MEDS: FERROUS GLUCONATE 324 MG TAB PO SCH ×2 (07:32→17:38)
[2020-04-30] MEDS: ASCORBIC ACID 500 MG TAB PO SCH ×2 (07:32→17:38)
[2020-04-30] MEDS: SODIUM CHLORIDE 0.9% 1000ML 1,000 ML IV SCH (08:11)
[2020-04-30] MEDS: CHOLECALCIFEROL 1,000 UNITS 25 MCG TAB PO SCH (08:41)
[2020-04-30] MEDS: SPIRONOLACTONE 25 MG TAB PO SCH ×2 (08:41→17:38)
[2020-04-30] MEDS: POTASSIUM CHLORIDE CRTAB 20 MEQ TABCR PO SCH ×2 (08:41→20:01)
[2020-04-30] MEDS: MAGNESIUM OXIDE 400 MG TAB PO SCH (08:42)
[2020-04-30] MEDS: TOCOPHERYL, DL-ALPHA 400 UNITS CAP PO SCH (08:42)
[2020-04-30] MEDS: ASPIRIN 81 MG ECTAB PO SCH ×2 (08:42→20:01)
[2020-04-30] MEDS: MULTIVITAMIN TAB PO SCH (08:43)
[2020-04-30] MEDS: DOCUSATE SODIUM 100 MG CAP PO SCH ×2 (08:44→20:00)
[2020-04-30] MEDS: TAPENTADOL HCL ER 50 MG TABCR PO SCH ×2 (08:48→20:01)
[2020-04-30] MEDS ORDERED: NON-FORMULARY MEDICATION (Coenzyme Q10 10 mg capsule) PO SCH (09:00)
[2020-04-30] MEDS ORDERED: [UNRECOGNIZED DRUG - OTHER] PO SCH (09:00)
--- NOTE | 2020-04-30 15:17 | Progress Notes ---
DATE: 04/30/2020 SUBJECTIVE: A 59-year-old female postop day 1 from left knee replacement. She is doing okay. Having lot a bit of quadriceps pain mostly. No chest pain or shortness of breath. Therapy went reasonably well. Not feeling dizzy or lightheaded. OBJECTIVE: VITAL SIGNS: Temperature 36.8. Vital signs stable. GENERAL: Shows a pleasant, middle-aged female. She is lying in bed, looks pretty comfortable. LUNGS: Clear to auscultation. HEART: Has regular rate and rhythm. ABDOMEN: Soft, nontender, nondistended. EXTREMITIES: Grossly neurovascularly intact except as follows: Examination of the left leg reveals the leg to be well aligned. Dressing is clean, dry and intact. She can just about do a straight leg raise. She can dorsiflex and plantarflex her foot appropriately. She has got brisk refill. LABORATORY DATA: Hemoglobin is 12.9. Hematocrit 38.8. White cell count 12.21. Electrolytes are stable. ASSESSMENT: A 59-year-old female postoperative day 1 from left knee replacement, doing pretty well. Having a reasonable amount of quadriceps pain, which is normal. She is neurologically intact. PLAN: 1. DVT prophylaxis including thigh-high TEDs, SCDs, and aspirin twice a day. 2. PT/OT. She can weightbear as tolerated. Left total knee protocol. 3. Pain control, doing okay with current pain regimen. 4. Disposition: She is planning to be discharged to home with some home health once adequately recovered and medically stable and pain adequately controlled. Likely discharge tomorrow after therapy.
[2020-04-30] MEDS: METAXALONE 800 MG TABLET PO PRN (19:59)
[2020-04-30] MEDS: SENNA 8.6 MG TAB PO SCH (20:01)
[2020-04-30] MEDS: METOPROLOL TARTRATE 25 MG TAB PO SCH (20:02)
[2020-04-30] MEDS: aMILoride HCL 5 MG TAB PO SCH (20:02)
[2020-04-30] MEDS: hydroCHLOROthiazide 25 MG TAB PO SCH (20:02)
[2020-05-01] MEDS: oxyCODONE HCL IR 5 MG TAB (IMMEDIATE RELEASE) PO PRN (01:04)
[2020-05-01] MEDS: KETOROLAC 30 MG/ML VIAL IV SCH ×2 (01:08→07:01)
[2020-05-01] MEDS: METAXALONE 800 MG TABLET PO PRN (05:12)
[2020-05-01] MEDS: ACETAMINOPHEN 500 MG TAB PO SCH (05:12)
[2020-05-01 07:38] VITALS: BP 123/70; PULSE 71; TEMP 98.6; O2SAT 95
[2020-05-01] MEDS: TAPENTADOL HCL ER 50 MG TABCR PO SCH (08:03)
[2020-05-01] MEDS: DOCUSATE SODIUM 100 MG CAP PO SCH (08:03)
[2020-05-01] MEDS: FERROUS GLUCONATE 324 MG TAB PO SCH (08:04)
[2020-05-01] MEDS: TOCOPHERYL, DL-ALPHA 400 UNITS CAP PO SCH (08:04)
[2020-05-01] MEDS: ASPIRIN 81 MG ECTAB PO SCH (08:04)
[2020-05-01] MEDS: POTASSIUM CHLORIDE CRTAB 20 MEQ TABCR PO SCH (08:04)
[2020-05-01] MEDS: MAGNESIUM OXIDE 400 MG TAB PO SCH (08:04)
[2020-05-01] MEDS: CHOLECALCIFEROL 1,000 UNITS 25 MCG TAB PO SCH (08:04)
[2020-05-01] MEDS: MULTIVITAMIN TAB PO SCH (08:04)
[2020-05-01] MEDS: SPIRONOLACTONE 25 MG TAB PO SCH (08:05)
[2020-05-01] MEDS: ASCORBIC ACID 500 MG TAB PO SCH (08:05)
[2020-05-01] MEDS: Scopolamine CHECK PATCH PLACEMENT SCH ×2 (08:05)
--- NOTE | 2020-05-01 08:15 | Progress Notes ---
DATE: 05/01/2020 SUBJECTIVE: A 59-year-old female postop day 2 from left knee replacement. She is doing better this morning. Pain seems to be better controlled. No new complaints. No chest pain or shortness of breath. Not feeling dizzy or lightheaded. OBJECTIVE: VITAL SIGNS: Temperature is 36.5. Vital signs stable. GENERAL: Shows a pleasant, middle-aged female. She is lying in bed, looks pretty comfortable this morning. EXTREMITIES: Examination of the left leg reveals the leg to be well aligned. Dressing is clean, dry and intact. She can dorsiflex and plantarflex her foot appropriately. Calf is soft and supple. ASSESSMENT: A 59-year-old female postop day 2 from a left knee replacement, doing well. Pain seems to be better controlled today. PLAN: 1. DVT prophylaxis including thigh-high TEDs, SCDs, and aspirin twice a day. 2. PT/OT. Weight bear as tolerated. Left total knee protocol. 3. Pain control, doing okay with current pain regimen. 4. Disposition: Plan to discharge to home with some home health likely later today.
== END 2020-05-01 12:15 | disposition home health service (06) ==
LOC: 3E 06:45 → ASU 06:45
DX: Z91.048 Other nonmedicinal substance allergy status; E66.9 Obesity, unspecified; Z68.41 Body mass index [BMI] 40.0-44.9, adult; I10 Essential (primary) hypertension; Z79.82 Long term (current) use of aspirin; Z79.899 Other long term (current) drug therapy; J45.909 Unspecified asthma, uncomplicated; G47.30 Sleep apnea, unspecified; M17.12 Unilateral primary osteoarthritis, left knee; M06.9 Rheumatoid arthritis, unspecified; Z79.51 Long term (current) use of inhaled steroids

== ENCOUNTER 2021-09-22 06:42 | Observation (INO) ==
--- NOTE | 2021-09-17 09:31 | History and Physical Report ---
CHIEF COMPLAINT: Right knee pain. HISTORY OF PRESENT ILLNESS: The patient is a 61-year-old female who presents now for surgical treatm ent for her right knee. She has got a long history of knee problems and underwent a left knee replac ement about a year and a half ago. She has done pretty well from this. She is now limited by pain a nd discomfort in her right knee. She describes global pain. The more she is on it, the more it hurt s. She has gradually progressed over the past several years. She has been through extensive conserv ative care, which has become less successful over time. She is ready to have her knee replaced. She is actually scheduled for this a while back, but canceled due to the COVID epidemic. PAST MEDICAL HISTORY: 1. Prediabetes. 2. Hypertension. 3. Sleep apnea with CPAP machine. 4. Obesity with BMI of 50. 5. Low back pain/sciatica. 6. Spinal stenosis. 7. Kidney stones. PAST SURGICAL HISTORY: Includes: 1. Left knee replacement done on 04/29/2020. 2. . 3. D and C. 4. Cholecystectomy. 5. Lithotripsy. ALLERGIES: TO ADHESIVES. CURRENT MEDICATIONS: Include: 1. Albuterol. 2. Amiloride. 3. Amoxicillin. 4. Aspirin. 5. Beclomethasone. 6. Vitamin D3. 7. Coenzyme Q. 8. Desonide. 9. Diclofenac topical gel. 10. Oral diclofenac. 11. Doxycycline. 12. Fluticasone inhaler. 13. Gabapentin. 14. Hydrochlorothiazide. 15. Loratadine. 16. Magnesium. 17. Metaxalone. 18. Metoprolol. 19. Cobb 3. 20. Potassium chloride. 21. Spironolactone. 22. Potassium citrate. 23. Vitamin C and E. SOCIAL HISTORY: A 61-year-old female. Occasional alcohol intake. Does not smoke. FAMILY HISTORY: Noncontributory. REVIEW OF SYSTEMS: Significant for prediabetes. No current chest pain or shortness of breath. No h istory of DVT or PE. No known bleeding problems. PHYSICAL EXAMINATION: GENERAL: Pleasant middle-aged female. Looks to be in reasonably good health. HEENT: Benign. NECK: Supple. No lymphadenopathy. LUNGS: Clear to auscultation. HEART: Regular rate and rhythm. ABDOMEN: Soft, nontender, nondistended. EXTREMITIES: Grossly neurovascularly intact except as follows: Examination of both knees reveals th e patient walks independently. Walks with a little bit of a waddling gait. Examination of the right knee reveals a slight varus alignment. Moderate soft tissue envelope. She is tender over the media l joint line. Small knee effusion. Range of motion is 5- 120. No instability. Examination of the left knee reveals a well-healed incision. Knee alignment looks good. Range of motion is 0-120. X-RAYS: X-rays of both knees were reviewed. X-rays of the right knee reveal advanced right knee DJD . She has got complete loss of the medial joint space. She has subchondral sclerosis. She got oste ophytes primarily medially. The left knee replacement looks to be in good position without signs of problems. ASSESSMENT: A 61-year-old white female with multiple medical comorbidities including obesity, predia betes, hypertension, sleep apnea, spinal stenosis, now a year and a half out from a left knee replace ment with right knee degenerative joint disease. She has failed conservative measures and would like to proceed with surgical management. PLAN: We are going to take her to the operating room and do right total knee replacement. The risks and benefits of this procedure were explained to the patient include but not limited to DVT, PE, ada th, infection, neurological injury, vascular injury, bleeding problem, pain, limited range of motion, stiffness, failure to relieve her symptoms, incomplete relief of symptoms, need for further surgery in the future, persistent pain, etc. The patient understands and desires to proceed. Informed conse nt was obtained. She will need to take her metoprolol the morning of surgery with a sip of water. She is planning to be discharged to home using [facility], bring CPAP machine to the hospital. Job ID: [id number]
--- NOTE | 2021-09-18 11:31 | Anesthesiology Consultation ---
Date of Service September 18, 2021 Assessment & Plan (1) Encounter for pre-operative examination: Chart Review Chart Review: Acceptable Risk for Surgery (pending preop Covid testing results ) and Patient NOT seen in Pre Admission Testing Per nursing assessment 4022, patient denies any recent travel. Wears mask when required and in large crowds. No known Covid infection in the past 90 days. Patient is fully vaccinated for Covid. No known Covid positive exposures or Covid related symptoms. Preop Covid testing scheduled 09/18/21= will await results Left TKA 04/29/20= Done under SAB at 3-4 with 1 attempt. No anesthesia issues noted per anesthesia record History Surgery Operation Date: 09/22/21 09:20 Proposed Procedures p Right Total Knee Arthroplasty - Omar Saavedra MD Height/Weight Height: 5 ft 4 in Weight: 133.81 kg Allergies Allergy/AdvReac Type Severity Reaction Status Date / Time adhesive Allergy Mild Skin Verified 09/18/21 10:14 soreness (from bandaids adhesive) Medications Home Medications Medication Instructions Recorded Confirmed Last Taken albuterol sulfate 90 mcg/actuation 2 puffs INH Q4H PRN gm 05/08/19 09/18/21 Unknown aerosol inhaler beclomethasone dipropionate 80 1 puffs INH BID PRN 05/08/19 09/18/21 Unknown mcg/actuation HFA breath activated aerosol (Qvar RediHaler) cholecalciferol (vitamin D3) 50 2,000 units PO QAM cap 05/08/19 09/18/21 06/24/21 mcg (2,000 unit) capsule coenzyme Q10 10 mg capsule 10 mg PO QAM cap 05/08/19 09/18/21 06/24/21 desonide 0.05 % topical ointment 1 applic TOP DAILY PRN gm 05/08/19 09/18/21 Unknown diclofenac sodium 75 mg 75 mg PO BID tab 05/08/19 09/18/21 06/25/21 tablet,delayed release doxycycline hyclate 50 mg capsule 50 mg PO QAM cap 05/08/19 09/18/21 06/24/21 fluticasone propionate 50 2 sprays INTNAS DAILY PRN ml 05/08/19 09/18/21 Unknown mcg/actuation nasal spray,suspension metoprolol tartrate 25 mg tablet 12.5 mg PO HS tab 05/08/19 09/18/21 06/24/21 omega-3 acid ethyl esters 1 gram 1 cap PO QAM cap 05/08/19 09/18/21 06/24/21 capsule potassium chloride 20 mEq 20 meq PO QPM tab 05/08/19 09/18/21 06/24/21 tablet,extended release potassium citrate 5 mEq (540 mg) 5 meq PO BID tab 05/08/19 09/18/21 06/25/21 tablet,extended release spironolactone 25 mg tablet 25 mg PO BID tab 05/08/19 09/18/21 06/25/21 vitamin E succinate 268 mg (400 400 units PO QAM tab 05/08/19 09/18/21 06/24/21 unit) tablet loratadine 5 mg-pseudoephedrine ER 1 tab PO DAILY PRN tab 01/01/20 09/18/21 Unknown 120 mg tablet,extended release,12hr amiloride 5 mg tablet 2.5 mg PO HS 03/24/20 09/18/21 06/24/21 diclofenac sodium 1 % topical gel 4 gm TOP TID PRN 03/24/20 09/18/21 Unknown hydrochlorothiazide 25 mg tablet 25 mg PO HS 03/24/20 09/18/21 06/24/21 Myron Watters #1 ea 05/21/20 09/18/21 Unknown amoxicillin 500 mg tablet 2,000 mg PO ONCE #4 tab 05/29/20 09/18/21 Unknown aspirin 81 mg tablet,delayed 81 mg PO PM 02/12/21 09/18/21 06/24/21 release glucosamine sulf dipot 2 cap PO QAM 04/06/21 09/18/21 06/24/21 chlr,msm,chond 550 mg-C 30 mg-akua 1 mg capsule (Glucosamine Chondroitin) magnesium oxide 400 mg PO QAM 04/06/21 09/18/21 06/24/21 metaxalone 800 mg tablet 800 mg PO TID PRN 04/06/21 09/18/21 Unknown vit A 7,160 unit-vit C 113 mg-vit 1 tab PO QAM 04/06/21 09/18/21 06/24/21 E 100 oscb-ladf-ebxqlb tablet zinc 50 mg tablet 50 mg PO QAM 04/06/21 09/18/21 06/24/21 Past Medical History Medical History Asthma LAST INHALER USE PAST WEEK Hx of renal calculi Hypertension Idiopathic polyneuropathy Mild per pt, denies ambulation aid Lumbar spondylosis Morbid obesity Osteoarthritis Polycythemia No recent hematology evaluation. Per remote hematology note from 2017 suspected to be related to sleep apnea which pt reports is now treated reliably. Hgb today within normal range. Remote hematology record noted no need for phlebotomy unless Hgb worsened. Psoriatic arthritis Per records, pt unsure Right lumbar radiculopathy Sleep apnea CPAP-nightly Past Family History Family History Father Lung cancer Mother Hypertension Uncle Family history of diabetes mellitus Past Surgical History Surgical History History of cholecystectomy History of colonoscopy History of dilatation and curettage History of hysteroscopy History of left knee replacement 04/29/2020: SAB L3-L4, 1 attempt. + PNB. No issues reported on anesthesia progress note. History of lithotripsy Social History Smoking Status: Never smoker Do You Dip or Chew Tobacco: No Hx Alcohol Use: No Alcohol type: beer, wine and hard liquor alcohol intake frequency: holidays/special occasions only Hx Substance Use: No substance use type: does not use Lab Results Anesthesia Preop Results Results Anesthesia Widget: WBC 5.80 K/uL (4.8-10.8) 09/10/21 Hgb 15.6 g/dL (12.0-16.0) 09/10/21 Hct 45.7 % (37-47) 09/10/21 Plt 228 K/uL (130-400) 09/10/21 Na 138 mmol/L (136-145) 09/10/21 K 3.7 mmol/L (3.5-5.1) 09/10/21 Cl 101 mmol/L (98-107) 09/10/21 CO2 29 mmol/L (21-32) 09/10/21 BUN 16 mg/dl (6-23) 09/10/21 Creat 0.72 mg/dl (0.6-1.2) 09/10/21 Glucose Level 147 mg/dl (70-99(Fasting)) H 09/10/21 PT 11.2 Seconds (9.0-12.0) 09/10/21 INR 1.1 (0.9-1.1) 09/10/21 TSH 2.012 uIu/ml (0.300-4.500) 09/10/21 Free T4 0.81 ng/dl (0.61-1.60) 09/10/21 Blood Type A Positive 09/10/21 Antibody Screen NEGATIVE 09/10/21 Testing Electrocardiogram Date: 04/08/21 Findings: + NSR @ (74bpm ) Normal EKG per cardio. Chest X-Ray Date: 04/08/21 Findings: + NAD Minimal linear left basilar opacity represents atelectasis. No acute cardiopulmonary findings. Echocardiogram Echocardiogram 04/03/2020= EF =67%. Normal LV size (for BSA) and systolic fu nction. Normal wall motion. Echo dropout of the basal inferior wall. Atrial septum seems intact. Mild concentric LVH. Normal LV diastolic dysfunction. Normal atria. Normal RV size and function. No significant valvular pathology. Normal pulmonary pressures.(Discussed ECHO with Dr. Aguilera on 04/23/20 prior to left TKA- pt able to proceed with surgery- no noted issues )
[~2021-09-22 06:42] MED LIST changes: -DEXAMETHASONE SOD INJ 4 MG/ML VIAL ONE; -EPINEPHrine INJ 1 MG/ML AMP ONE; +Scopolamine 1 MG TDSY TD SCH; -ceFAZolin 2000MG 2,000 MG/15 ML SYR IV SCH
--- NOTE | 2021-09-22 06:54 | History & Physical Bridge Note ---
Date of Service September 22, 2021 History & Physical Bridge Note I have examined the patient, reviewed the History & Physical and in the interval since the performance of the History & Physical I have noted the following changes of clinical significance: no changes noted
[2021-09-22] MEDS ORDERED: fentaNYL citrate 100 MCG/2 ML VIAL ONE (08:05)
[2021-09-22] MEDS ORDERED: MIDAZOLAM HCL 1 MG/ML 2ML VIAL ONE (08:05)
[2021-09-22] MEDS ORDERED: BUPIVACAINE/EPINEPHRINE 0.25% 1:200,000 30 ML VIAL ONE (08:31)
[2021-09-22] MEDS ORDERED: BUPIVACAINE LIPOSOME 1.3% 266 MG/20 ML VIAL ONE (08:31)
[2021-09-22] MEDS ORDERED: SODIUM CHLORIDE 0.9% PF 50 ML VIAL ONE (08:31)
[2021-09-22] MEDS ORDERED: ATROPINE SULFATE 0.1 MG/ML 10ML SYR IV PRN (08:56)
[2021-09-22] MEDS ORDERED: ePHEDrine sulfate 50 MG/ML AMP IV PRN (08:56)
[2021-09-22] MEDS ORDERED: fentaNYL citrate 100 MCG/2 ML VIAL IV PRN (08:56)
[2021-09-22] MEDS ORDERED: ONDANSETRON INJ 2 MG/ML 2 ML VIAL IV PRN ×2 (08:56→11:51)
[2021-09-22] MEDS ORDERED: KETAMINE 50 MG/5 ML SYRINGE ONE (09:10)
[2021-09-22] MEDS ORDERED: LIDOCAINE 2% 2 ML VIAL/AMP(20MG/ML) INFIL ONE (09:52)
[2021-09-22] MEDS ORDERED: PROPOFOL IV EMULSION 10 MG/ML 20 ML VIAL IV ONE (09:52)
--- NOTE | 2021-09-22 11:00 | Operative Report ---
PG Post Operative Report Pre & Post Diagnosis Operation Date: 09/22/21 08:50 Pre-Op Diagnosis: Right Knee Advanced Degenerative Joint Disease Post-Op Diagnosis: Right Knee Advanced Degenerative Joint Disease I identified the patient and participated in the time-out.: Yes Procedure Operation Date: 09/22/21 08:50 Actual Procedures p Right Total Knee Arthroplasty(Right) - Omar Saavedra MD Surgeon Omar Saavedra MD Bench Manager Cale Edwards PA-C Estimated Blood Loss 50 Findings Consistent with Post-Op Diagnosis Operative findings revealed advanced grade 4 gyhr-px-[id number] disease of the medial and patellofemoral compartments. She had a varus deformity to her knee. Moderate-sized joint effusion. Fluids 1000 cc Specimens Right knee sent for pathology Drains None Anesthesia Type Spinal MAC Complications none Disposition Accompanied Patient To Recovery: No Indications Patient 61-year-old obese female has had a long history of knee problems. She has been through extensive conservative treatment which became less successful over time. She had her left knee replaced about a year and a half ago and is done quite well with this. She becomes that debilitated by her right knee pain discomfort. She failed conservative measures and elected proceed with total knee arthroplasty. Description of Procedure Operative implants consist of: 1. Biomet Vanguard size 67.5 right posterior stabilized femoral component. 2. Biomet size 71 tibial tray. 3. 10 mm posterior stabilized polyethylene insert. 4. 31 x 8 all polypatella. The patient was taken the operating room, identified, and placed on the operating table supine position protectors were properly padded. IV antibiotics were provided by anesthesia team. A spinal anesthetic had been implemented holding area. [place] catheter was placed in sterile fashion. A right thigh turn was then placed in the right lower extremity was then prepped and draped in usual sterile fashion. The right leg was elevated exsanguinated with use of an Esmarch in terms playset 300 mmHg. An anterior approach to the right knee was then performed to longitudinal incision centered over the patella. Sharp dissection was carried through subcutaneous this down the extensor mechanism. A medial parapatellar arthrotomy incision was made. Some subperiosteal dissection was carried out medially. The fat pad was resected from deep the patella tendon. The lateral patellofemoral ligament was released. Patella subluxated laterally and the knee was flexed. The osteophytes taken off distal femur. The ACL PCL then released in the distal femur and the tibia subluxated anteriorly. The external tibial alignment jig was then placed in the interface the tibia and adjusted 14 mm medially. Proximal tibial cut was made remove about 2 mm of bone from most deficient aspect medial tibial plateau. Some osteophytes taken off medial and posterior medially. The tibia sized to a size 71. Attention drawn the femur. The distal femur examined the sharp drill. The intramedullary canal was suction. The right 5 degree valgus cutting guide was placed. Distal femoral cutting block was pinned in place. Distal femoral cut was made to take an additional 3 mm of bone off distal femur. The femur was then sized to a size 67.5. She had fairly narrow dimensions and we downsized this almost an entire size. I did not feel like I can downsize it any further without risking instability. The AP cutting block was pinned parallel to the epicondylar axis which was 3 degrees of external rotation. The anterior cut, anterior chamfer, posterior cut, posterior chamfer cuts were made. The box cutting guide was placed in just slight lateral box cut was made. The knee was flexed. The remnants of the medial and lateral menisci were excised. The osteophytes taken off the posterior aspect of femur. A trial femoral component was placed. Tibial tray was pinned in maximum external rotation and the drill and stem punch were used to create defect in proximal tibia for the tibial tray. The knee was then trialed and the 10 mm insert fit most appropriately. Attention drawn the patella. Nupathe patella was cleaned of all soft tissues. Patella thickness measured 22 mm in thickness was cut down to 13. Was sized to a size 31 patella. The lug holes were drilled for the 31 patella. The lateral osteophyte is moved. Patella button was placed. Knee was taken through range of motion and the patella tracked nicely with no thumbs test. Attention drawn to place the permanent components. All trial components were removed. A bone plug was placed in the distal femur limit blood loss. Double batch Palacos G cement was mixed. Biomet Vanguard size 67.5 right posterior stabilized femoral component, size 71 tibial tray, 10 mm posterior stabilized polyethylene insert, and a 31 x 8 all polypatella then cemented in place. Knee was brought out into full extension total cement hardened. Final cement check was then performed. Pericapsular tissues were injected with total 100 cc of combination of 20 cc of Exparel, 30 cc normal saline, 50 cc of quarter percent Marcaine with epinephrine. Patient did receive 1 g tranexamic acid. The tourniquet was then let down for final tourniquet time 57 minutes. Hemostasis assured use electrocautery. The extensor mechanism closed with combination 1 PDS suture #1 Vicryl suture in [id number] fashion. Extensor mechanism checked found to be intact. The subcutaneous tissue was then closed with 2 Dexon suture in a buried interrupted fashion skin was closed skin maximino. Leg was then cleaned and dried a sterile dressing with Xeroform, 4 x 4's, sterile cast padding, Mario bandage were applied. Patient then transferred to the recovery room in stable condition. Patient tolerated procedure well and there were no complications. Cale Edwards, my physician advertising sales assistant, was present for the entire procedure. His assistance was essential and required for appropriate patient positioning, prepping and draping, surgical exposure, performing the technical details of the operation, placement the implants, closure of the wound, and placement of the sterile bandage. I attest to the content of the Intraoperative Record and any orders documented therein. Any exceptions are noted below.
--- NOTE | 2021-09-22 11:18 | XRay Report ---
TWO VIEWS RIGHT KNEE CLINICAL HISTORY: Postoperative examination. FINDINGS: AP and crosstable lateral portable views of the right knee are obtained. A right knee arthr oplasty is in near anatomic alignment. There has been undersurface remodeling of the patella. No acut e fracture is seen. There are expected postoperative changes around the knee including skin clips, so ft tissue edema, and subcutaneous gas. IMPRESSION: Expected postoperative changes status post right knee arthroplasty. No acute fracture is seen. ACT 112: Negative or not required by law. Electronically signed by: Edward Boothe M.D. 09/22/2021 11:17 AM
[2021-09-22] MEDS ORDERED: CARBOHYDRATES FOR HYPOGLYCEMIA PO PRN (11:51)
[2021-09-22] MEDS ORDERED: ALUMINUM/MAGNESIUM SUSP 30 ML UDC PO PRN (11:51)
[2021-09-22] MEDS ORDERED: PHARMACY GLYCEMIC MGMT CONSULT PRN (11:51)
[2021-09-22] MEDS ORDERED: HYDROmorphone INJ 0.5 MG/0.5 ML SYR IV PRN (11:51)
[2021-09-22] MEDS ORDERED: diphenhydrAMINE Capsule 25 MG CAP PO PRN (11:51)
[2021-09-22] MEDS ORDERED: bisacodyL 10 MG SUPP PR PRN (11:51)
[2021-09-22] MEDS ORDERED: GLUCOSE 10 TABS/TUBE PO PRN (11:51)
[2021-09-22] MEDS ORDERED: METOCLOPRAMIDE HCL INJ 5 MG/ML 2 ML VIAL IV PRN (11:51)
[2021-09-22] MEDS ORDERED: METAXALONE 800 MG TABLET PO PRN (11:51)
[2021-09-22] MEDS ORDERED: DESONIDE 0.05% TOP PRN (11:51)
[2021-09-22] MEDS ORDERED: GLUCAGON FOR INJ 1 MG VIAL SQ PRN (11:51)
[2021-09-22] MEDS ORDERED: MAGNESIUM HYDROXIDE SUSP 30 ML UDC PO PRN (11:51)
[2021-09-22] MEDS ORDERED: GLUCOSE 40% GEL 15 GM TUBE PO PRN (11:51)
[2021-09-22] MEDS ORDERED: ALBUTEROL HFA 8 GM INHALER INH PRN (11:51)
[2021-09-22] MEDS ORDERED: DEXTROSE 50% 50 ML SYRINGE IV PRN (11:51)
[2021-09-22] MEDS ORDERED: NALOXONE HCL 0.4 MG/1 ML VIAL/CARP IV PRN (11:51)
[2021-09-22] MEDS ORDERED: FLUTICASONE FUROATE 100MCG 14 PUFFS/INHALER INH PRN (12:15)
[2021-09-22] MEDS ORDERED: LORATADINE 10 MG TAB PO PRN (12:20)
[2021-09-22] MEDS: SODIUM CHLORIDE 0.9% 1000ML 1,000 ML IV SCH ×2 (12:57→22:17)
--- NOTE | 2021-09-22 13:59 | Anesthesiology Progress Note ---
Date of Service September 22, 2021 Anesthesia Post Procedure Vital Signs Vital Signs: Temp Pulse Pulse Resp BP Pulse Ox 09/22/21 12:55 36.7 C 92 H 16 160/80 H 95 09/22/21 12:25 36.7 C 91 H 16 157/96 H 95 09/22/21 11:55 36.5 C 89 17 137/77 92 09/22/21 11:40 36.4 C L 91 H 17 141/72 H 92 09/22/21 11:39 36.4 C L 91 H 17 141/72 H 92 09/22/21 11:15 36.2 C L 91 H 18 146/81 H 94 09/22/21 11:05 87 18 151/74 H 94 09/22/21 10:55 91 H 20 126/75 98 09/22/21 10:48 36.5 C 93 H 21 131/61 98 09/22/21 07:13 37.2 C 93 H 20 170/86 H 95 Transfer of Care Handoff Completed per policy Notes Mental Status: alert / awake / arousable and participated in evaluation Patient Amnestic to Procedure: Yes Nausea / Vomiting: adequately controlled Pain: adequately controlled Airway Patency, RR, SpO2: stable & adequate BP & HR: stable & adequate Hydration State: stable & adequate Neuraxial Anesthesia: was administered and sensory block is resolving Anesthetic Complications: no major complications apparent and Pt Satisfied with anesthetic care
[2021-09-22] MEDS: INSULIN ASPART PER UNIT SC SCH ×3 (14:12→21:01)
[2021-09-22] MEDS: ACETAMINOPHEN 500 MG TAB PO SCH ×2 (14:55→20:56)
[2021-09-22] MEDS: KETOROLAC 30 MG/ML VIAL IV SCH ×2 (14:55→20:38)
[2021-09-22] MEDS ORDERED: TRANEXAMIC ACID / 0.7% NACL 1,000 MG/100 ML BAG IV SCH (16:45)
[2021-09-22] MEDS: Scopolamine CHECK PATCH PLACEMENT SCH (16:47)
[2021-09-22] MEDS: ceFAZolin 2000MG 2,000 MG/15 ML SYR IV SCH (20:36)
--- NOTE | 2021-09-22 20:36 | Progress Notes ---
DATE OF SERVICE: 09/22/2021. SUBJECTIVE: A 61-year-old female postop from a right knee replacement. She is doing pretty well. H aving some pain, but manageable. No chest pain or shortness of breath. Not feeling dizzy or lighthe aded. OBJECTIVE: VITAL SIGNS: Temperature 36.9. Vital signs are stable. PHYSICAL EXAMINATION: GENERAL: Shows a pleasant middle-aged female. She is sitting up in bed, eating her dinner, looks co mfortable. LUNGS: Clear to auscultation. HEART: Has a regular rate and rhythm. ABDOMEN: Soft, nontender, nondistended. EXTREMITIES: Grossly neurovascularly intact except as follows: Examination of the right leg reveals the leg to be well aligned. Dressing is clean, dry and intact. She can dorsiflex and plantarflex h er foot appropriately. She is neurologically intact. X-RAYS: X-rays of the right knee from recovery room are reviewed. It shows right cemented posterior stabilized total knee arthroplasty. Components looked to be in good position. No signs of problems . ASSESSMENT: A 61-year-old female postoperative from a right knee replacement, doing well. Pain is c ontrolled. She is neurologically intact. PLAN: 1. DVT prophylaxis includes thigh-high TEDs, SCDs, and aspirin twice a day. 2. PT, OT, weightbear as tolerated. Right total knee protocol. 3. Pain control, doing okay with current pain regimen. 4. IV antibiotics x24 hours. 5. Disposition: Plan to discharge to home with some home health once adequately recovered. She is going to use [facility]. We will see how she does in therapy tomorrow. Job ID: [id number]
[2021-09-22] MEDS: POTASSIUM CITRATE 10 MEQ TAB PO SCH (20:44)
[2021-09-22] MEDS: DOCUSATE SODIUM 100 MG CAP PO SCH (20:56)
[2021-09-22] MEDS: SPIRONOLACTONE 25 MG TAB PO SCH (20:57)
[2021-09-22] MEDS: ASPIRIN 81 MG ECTAB PO SCH (20:58)
[2021-09-22] MEDS ORDERED: METOPROLOL TARTRATE 25 MG TAB PO SCH (21:00)
[2021-09-22] MEDS ORDERED: POTASSIUM CHLORIDE CRTAB 20 MEQ TABCR PO SCH ×2 (21:00)
[2021-09-22] MEDS ORDERED: aMILoride HCL 5 MG TAB PO SCH (21:00)
[2021-09-22] MEDS ORDERED: hydroCHLOROthiazide 25 MG TAB PO SCH (21:00)
[2021-09-22] MEDS ORDERED: SENNA 8.6 MG TAB PO SCH (21:00)
[2021-09-22] MEDS: TAPENTADOL HCL ER 50 MG TABCR PO SCH (22:16)
[2021-09-23] MEDS: Scopolamine CHECK PATCH PLACEMENT SCH ×2 (00:42→08:22)
[2021-09-23] MEDS: KETOROLAC 30 MG/ML VIAL IV SCH ×2 (01:46→08:24)
[2021-09-23] MEDS: ceFAZolin 2000MG 2,000 MG/15 ML SYR IV SCH (01:46)
[2021-09-23] MEDS: ACETAMINOPHEN 500 MG TAB PO SCH ×2 (05:49→13:52)
[2021-09-23 07:13] LABS: BUN Creatinine Ratio 15.1 (10-20); Calcium 8.7 mg/dl (8.5-10.1); Creatinine Clr Calc Pharmacy 110.9 ml/min; Est GFR (African American) 102.3 ml/min; Est GFR (Non-African American) 88.3 ml/min; Potassium 3.8 mmol/L (3.5-5.1)
[2021-09-23 07:15] LABS: Hematocrit (blood only) 40.2 % (37-47); Hemoglobin 13.5 g/dL (12.0-16.0); Mean Corpuscular Hemoglobin 31.8 pg (25-34); Mean Corpuscular Hgb Conc 33.6 g/dL (32-36); Mean Corpuscular Volume 94.8 fL (80-100); Mean Platelet Volume 10.4 fL (7.4-10.4); Platelet Count 202 K/uL (130-400); RDW Coefficient of Variation 14.2 % (11.5-14.5); RDW Standard Deviation 48.9 fL (36.4-46.3); Red Blood Count 4.24 M/uL (4.2-5.4); White Blood Count 7.56 K/uL (4.8-10.8)
[2021-09-23] MEDS: oxyCODONE HCL IR 5 MG TAB (IMMEDIATE RELEASE) PO PRN ×2 (07:57→14:21)
[2021-09-23 08:00] LABS: Estimated Average Glucose 160 mg/dl; Hemoglobin A1C 7.2 % (4.5-5.6)
[2021-09-23] MEDS: POTASSIUM CITRATE 10 MEQ TAB PO SCH (08:19)
[2021-09-23] MEDS: DOCUSATE SODIUM 100 MG CAP PO SCH (08:19)
[2021-09-23] MEDS: SPIRONOLACTONE 25 MG TAB PO SCH (08:19)
[2021-09-23] MEDS: ASPIRIN 81 MG ECTAB PO SCH (08:20)
[2021-09-23] MEDS: TAPENTADOL HCL ER 50 MG TABCR PO SCH (08:26)
[2021-09-23] MEDS ORDERED: ZINC SULFATE 220 MG CAPSULE PO SCH (09:00)
[2021-09-23] MEDS ORDERED: MULTIVITAMIN TAB PO SCH (09:00)
[2021-09-23] MEDS ORDERED: TOCOPHERYL, DL-ALPHA 400 UNITS 180 MG CAP PO SCH (09:00)
[2021-09-23] MEDS ORDERED: NON-FORMULARY MEDICATION (Glucos Sul 2kcl-Msm-Chond-C-Mn [Glucosamine Chondroitin] 550-30- PO SCH (09:00)
[2021-09-23] MEDS ORDERED: OMEGA-3 (PURIFIED FISH OIL) 1 GM CAP PO SCH (09:00)
[2021-09-23] MEDS ORDERED: CHOLECALCIFEROL 1,000 UNITS 25 MCG TAB PO SCH (09:00)
[2021-09-23] MEDS ORDERED: NON-FORMULARY MEDICATION (Coenzyme Q10 10 mg capsule) PO SCH (09:00)
[2021-09-23] MEDS ORDERED: NON-FORMULARY MEDICATION (Vit A-Vit C-Vit E-Zinc-Copper 7,160-113-100 unit-mg-unit Tablet) PO SCH (09:00)
[2021-09-23] MEDS ORDERED: MAGNESIUM OXIDE 400 MG TAB PO SCH (09:00)
[2021-09-23] MEDS: INSULIN ASPART PER UNIT SC SCH ×2 (09:11→12:33)
--- NOTE | 2021-09-29 16:12 | Discharge Summary ---
Date of Service September 29, 2021 Discharge Data Procedures Performed Operation Date: 09/22/21 08:50 Actual Procedures p Right Total Knee Arthroplasty(Right) - Omar Saavedra MD Diabetes Follow Up Diabetes Follow Up: Diabetes Follow-up Needed for Newly Diagnosed Diabetes Hospital Course (1) Status post total right knee replacement: This patient is a 61 year old patient admitted on 09/22/21 and underwent total knee arthroplasty. She tolerated the procedure well and there were no complications. Transferred to the PACU post op and later to the orthopedic floor for further care. She was given ancef for antibiotic prophylaxis. She was also given HAI stockings, SCDs, and aspirin for DVT prophylaxis. Hemoglobin, hematocrit, and vital signs were monitored during her hospital stay and remained stable. Did not require any blood transfusions. There were no complications during her hospital stay. By post op day #1 the patient was tolerating a diabetic diet, pain was reasonably controlled with oral pain medicine, and she was participating in physical therapy. On post op day #1 the patient was discharged home. She was given printed discharge instructions including prescriptions for extra strength tylenol, aspirin, toradol, zofran, and oxycodone. Continue physical therapy, weight bearing as tolerated. Continue HAI stockings. Follow up approximately 2 weeks post op or sooner if there are problems or concerns. Coding Level of Care Code None Diagnoses Status post total right knee replacement Z96.651
== END 2021-09-23 16:19 | disposition home or self-care (01) ==
LOC: ASU 06:42 → 3E 06:42